=== PATIENT | female | born 1995 | race African-American/Black ===

== ENCOUNTER 2017-05-08 01:56 | Emergency (ER) | payer SELFPAY ==
[2017-05-08] MEDS ORDERED: SULFAMETHOXAZOLE/TRIMETHOPRIM 800MG/160MG D.S. TABLET PO ONE (02:17)
[2017-05-08] MEDS ORDERED: ALBUTEROL SO4 2.5/IPRATROPIUM 0.5 INH SOL 3 ML VIAL.NEB. NEB STA (02:17)
[2017-05-08] MEDS ORDERED: MECLIZINE HCL 25 MG TABLET (FP) PO STA (02:17)
--- NOTE | 2017-05-08 02:17 | PDOC ---
History of Present Illness - General Exam Limitations: No Limitations - History of Present Illness Initial Comments: 05/08/17 03:28 Patient is a 22 year old female with a significant past medical history of asthma who presents to the ED with complaints of sore throat that began 3 days ago. Patient reports sore throat began 3 days ago suddenly while at home. She reports recently she has been feeling a squeezing sensation on her throat that she says occurs every 10 minutes secondary to sore throat. She reports experiencing slight nasal congestion and cough secondary to sore throat. Patient reports she is a current smoker but states she has been unable to smoke because of her sore throat. Denies chest pain, SOB. Denies fever, chills. Denies nausea, vomiting. Denies contact with sick individuals, out of state travel. Denies any other symptoms. Allergies: No allergies Social history: Current smoker. No alcohol. No illicit drugs. Surgical history PMD: None <Shiraz Haywood - Last Filed: 05/08/17 03:28> - General History Source: Patient <Bola Lacey - Last Filed: 05/08/17 03:46> - General Chief Complaint: Sore Throat Stated Complaint: DIFFICULTY BREATHING Time Seen by Provider: 05/08/17 02:10 Past History <Shiraz Haywood - Last Filed: 05/08/17 03:28> - Past Medical History Asthma: Yes COPD: No - Immunization History Immunization Up to Date: Yes - Suicide/Smoking/Psychosocial Hx Smoking Status: Yes Smoking History: Never smoked Have you smoked in the past 12 months: No Number of Cigarettes Smoked Daily: 3 Cigars Per Day: 0 Information on smoking cessation initiated: No Hx Alcohol Use: No Drug/Substance Use Hx: No Substance Use Type: None <Bola Lacey - Last Filed: 05/08/17 03:46> - Past Medical History Allergies/Adverse Reactions: Allergies Allergy/AdvReac Type Severity Reaction Status Date / Time No Known Allergies Allergy Verified 04/26/16 10:31 Home Medications: Ambulatory Orders Albuterol Sulfate Inhaler - [Ventolin HFA Inhaler -] 2 inh IH Q6H #1 inh Ibuprofen 800 mg PO TID #30 tablet 05/08/17 Meclizine HCl 25 mg PO TID #30 tablet 05/08/17 Sulfamethoxazole/Trimethoprim [Bactrim *Ds*] 1 tab PO BID #14 tablet 05/08/17 Review of Systems - Review of Systems Able to Perform ROS?: Yes Comments:: 05/08/17 03:28 CONSTITUTIONAL: Absent: fever, no chills, no fatigue EYES: Absent: visual changes ENT: Absent: ear pain, no sore throat CARDIOVASCULAR: Absent: chest pain, no palpitations RESPIRATORY: Absent: cough, no SOB GI: Absent: abdominal pain, no nausea, no vomiting, no constipation, no diarrhea GENITOURINARY: Absent: dysuria, no frequency, no hematuria MUSCULOSKELETAL: Absent: back pain, no arthralgia, no myalgia SKIN: Absent: rash All Other Systems: Reviewed and Negative <Shiraz Haywood - Last Filed: 05/08/17 03:28> *Physical Exam - Vital Signs Last Vital Signs Temp Pulse Resp BP Pulse Ox 97.9 F 88 17 127/87 100 05/08/17 02:03 05/08/17 02:03 05/08/17 02:03 05/08/17 02:03 05/08/17 02:03 - Physical Exam Comments: 05/08/17 03:28 GENERAL: +Mild distress. Well-appearing, well-nourished. No apparent distress. HEENT: +Moderate nasal congestion. +Slightly muffled voice. Normocephalic, atraumatic. PERRL, EOM intact. CARDIOVASCULAR: Normal S1, S2. Regular rate and rhythm. PULMONARY: Equal breath sounds. No Retractions. Clear to auscultation bilaterally. ABDOMEN: Soft, non-distended, non-tender. GASTROINTESTINAL: +Holding secretions well. EXTREMITIES: Normal ROM in all four extremities. No gross deformities. SKIN: Warm, dry. No rash NEUROLOGICAL: No focal neurological deficits. <Shiraz Haywood - Last Filed: 05/08/17 03:28> - Vital Signs Last Vital Signs Temp Pulse Resp BP Pulse Ox 97.9 F 88 17 127/87 100 05/08/17 02:03 05/08/17 02:03 05/08/17 02:03 05/08/17 02:03 05/08/17 02:03 <Bola Lacey - Last Filed: 05/08/17 03:46> ED Treatment Course - Medications Given in the ED: ED Medications Discontinued Medications Generic Name Dose Route Start Last Admin Trade Name Robert PRN Reason Stop Dose Admin Meclizine HCl 25 mg 05/08/17 02:17 05/08/17 02:33 Antivert - PO 05/08/17 02:18 25 mg ONCE STA Administration Trimethoprim/Sulfamethoxazole 1 each 05/08/17 02:17 05/08/17 02:33 Bactrim Ds - PO 05/08/17 02:18 1 each ONCE ONE Administration <Shiraz Haywood - Last Filed: 05/08/17 03:28> Medical Decision Making - Medical Decision Making 05/08/17 03:45 Dr. Lacey: The scribe's documentation has been prepared under my direction and personally reviewed by me in its entirery. I confirm that the note above accurately reflects all work, treatment, procedures, and medical decision making performed by me. Pt feels better after treatment. Will discharge. Rx sent to pharmacy <Bola Lacey - Last Filed: 05/08/17 03:46> *DC/Admit/Observation/Transfer - Attestations Scribe Attestion: 05/08/17 03:28 Documentation prepared by hSiraz Haywood, acting as front office medical assistant for Bola Lacey MD/DO. <Shiraz Haywood - Last Filed: 05/08/17 03:28> - Discharge Dispostion Admit: No <Bola Lacey - Last Filed: 05/08/17 03:46> Diagnosis at time of Disposition: Nasal congestion, Bronchitis - Discharge Dispostion Disposition: HOME Condition at time of disposition: Stable - Prescriptions Prescriptions: Albuterol Sulfate Inhaler - [Ventolin HFA Inhaler -] 2 inh IH Q6H #1 inh Ibuprofen 800 mg PO TID #30 tablet Meclizine HCl 25 mg PO TID #30 tablet Sulfamethoxazole/Trimethoprim [Bactrim *Ds*] 1 tab PO BID #14 tablet - Patient Instructions Printed Discharge Instructions: DI for Acute Bronchitis, DI for Nasal Congestion - Post Discharge Activity Forms/Work/School Notes: Back to Work
[2017-05-08 02:22] VITALS: TEMP 97.9; BMI 28.1
[2017-05-08] MEDS ORDERED: IBUPROFEN 400 MG TABLET (FP) PO ONE ×2 (03:43→03:59)
[2017-05-08 04:04] VITALS: BP 121/74; PULSE 96
== END 2017-05-08 04:05 | disposition home or self-care (01) ==
LOC: JER 01:56
PROC: 3E0F7GC Introduction of Other Therapeutic Substance into Respiratory Tract, Via Natural or Artificial Opening (ICD-10-PCS; principal; 2017-05-08)
DX: J40 Bronchitis, not specified as acute or chronic (principal); J45.909 Unspecified asthma, uncomplicated; F17.210 Nicotine dependence, cigarettes, uncomplicated
CPT/HCPCS: 99281-25

== ENCOUNTER 2017-07-21 11:03 | Emergency (ER) | payer OTHER ==
[2017-07-21 11:25] VITALS: BP 113/71; PULSE 77; TEMP 97.9; BMI 25.8
--- NOTE | 2017-07-21 12:46 | PDOC ---
Suture Removal/Wound Check HPI - History of Present Illness Chief Complaint: Suture/Staple Removal(Here) Stated Complaint: STAPLE/SUTURE REMOVAL Time Seen by Provider: 07/21/17 12:17 History Source: Yes: Patient Exam Limitations: Yes: No Limitations Treated at: Other ED Date of Last ED visit: 07/13/17 - Previous ED Treatment Type of procedure performed on last visit: Yes: Laceration Repair Antibiotics Prescribed: No - Onset of Previous Treatment Date of Occurence: 07/13/17 Past History - Past Medical History Allergies/Adverse Reactions: Allergies Allergy/AdvReac Type Severity Reaction Status Date / Time No Known Allergies Allergy Verified 07/21/17 11:25 Home Medications: Ambulatory Orders NK [No Known Home Medication] 07/21/17 Asthma: Yes COPD: No - Immunization History Immunization Up to Date: Yes - Suicide/Smoking/Psychosocial Hx Smoking Status: Yes Smoking History: Current every day smoker Have you smoked in the past 12 months: Yes Number of Cigarettes Smoked Daily: 4 Cigars Per Day: 0 Information on smoking cessation initiated: No Hx Alcohol Use: Yes Drug/Substance Use Hx: No Substance Use Type: None Suture Removal/Wound Check PE - Physical Exam Laceration/Wound Check Symptoms: reports: None Pain Intensity: 0 Current Severity Level: None Location of Laceration/Wound: left: Face (eyebrow) *Review of Systems - Review of Systems Able to Perform ROS?: Yes All Other Systems: Reviewed and Negative Medical Decision Making - Medical Decision Making 07/21/17 12:22 A/P: 6-year-old female without significant past medical history of presents at 13 sutures removed from her left eyebrow. No erythema, swelling, discharge to suture line. Wound edges well approximated. Diagnosis: Suture removal I removed 12 sutures from patients left eyebrow. Discharge home *DC/Admit/Observation/Transfer Diagnosis at time of Disposition: Visit for suture removal - Discharge Dispostion Disposition: HOME Condition at time of disposition: Stable Admit: No - Referrals Referrals: Eladio Haynes [Primary Care Provider] - - Patient Instructions Additional Instructions: Return to emergency department for any concerns. - Post Discharge Activity
== END 2017-07-21 12:49 | disposition home or self-care (01) ==
LOC: JERFT 11:03
DX: Z48.02 Encounter for removal of sutures (principal)
CPT/HCPCS: 99281-25

== ENCOUNTER 2018-06-01 13:28 | Emergency (ER) | payer OTHER ==
[2018-06-01 14:01] VITALS: BMI 29.7
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
[2018-06-01 15:22] LABS: BASO % 1.1 % (0-2.0); EOS % 2.1 % (0-4.5); HEMATOCRIT 39.5 % (32.4-45.2); HEMOGLOBIN 12.5 GM/dL (10.7-15.3); LYMPH % 34.6 % (8-40); MCH 25.8 pg (25.7-33.7); MCHC 31.6 g/dl (32.0-36.0); MEAN CELL VOLUME 81.7 fl (80-96); MEAN PLT VOLUME 8.3 fl (7.5-11.1); MONO % 11.8 % (3.8-10.2); NEUT % 50.4 % (42.8-82.8); PLATELET COUNT 254 K/MM3 (134-434); RBC 4.84 M/mm3 (3.60-5.2); RDW 16.9 % (11.6-15.6); WHITE BLOOD COUNT 5.6 K/mm3 (4.0-10.0)
[2018-06-01 15:39] LABS: ALBUMIN 3.7 g/dl (3.4-5.0); ALK PHOS 65 U/L (45-117); ANION GAP 8 MMOL/L (8-16); BILIRUBIN,TOTAL 0.6 mg/dL (0.2-1); BLOOD UREA NITROGEN 6 mg/dL (7-18); CALCIUM 8.8 mg/dL (8.5-10.1); CHLORIDE 106 mmol/L (98-107); CO2 23 mmol/L (21-32); CREATININE 0.6 mg/dL (0.55-1.3); GLUCOSE,RANDOM 74 mg/dL (74-106); POTASSIUM 3.8 mmol/L (3.5-5.1); SGOT/AST 16 U/L (15-37); SGPT/ALT 13 U/L (13-61); SODIUM 136 mmol/L (136-145); TOT PROT 7.3 g/dl (6.4-8.2)
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
[2018-06-01 16:35] LABS: URINE APPEARANCE SLCLOUDY; URINE BILIRUBIN NEGATIVE (<2.0 mg/dL); URINE COLOR YELLOW; URINE GLUCOSE (UA) NEGATIVE (NEGATIVE); URINE KETONE 2+ (NEGATIVE); URINE LEUK ESTERASE 2+ (NEGATIVE); URINE NITRITE NEGATIVE (NEGATIVE); URINE PROTEIN NEGATIVE (NEGATIVE)
[2018-06-01 16:41] LABS: EPI CELLS MODERATE /HPF (FEW); URINE BACTERIA RARE /hpf (NONE SEEN); URINE MUCUS MANY
[2018-06-01] MEDS ORDERED: NITROFURANTOIN MACROCRYSTAL 50 MG CAPSULE (FP) PO SCH (17:00)
[2018-06-01] MEDS ORDERED: NITROFURANTOIN MACROCRYSTAL 50 MG CAPSULE (FP) ONE (17:08)
[2018-06-01 17:43] VITALS: BP 120/63; PULSE 64; TEMP 97.9
== END 2018-06-01 17:43 | disposition left against medical advice (07) ==
LOC: JER 13:28
DX: O26.891 Other specified pregnancy related conditions, first trimester (principal); S39.81XA Other specified injuries of abdomen, initial encounter; V48.7XXA Person on outside of car injured in noncollision transport accident in traffic accident, initial encounter; Y92.414 Local residential or business street as the place of occurrence of the external cause; Y93.89 Activity, other specified; Y99.8 Other external cause status; O23.31 Infections of other parts of urinary tract in pregnancy, first trimester; Z3A.01 Less than 8 weeks gestation of pregnancy
CPT/HCPCS: 36415; 76817-TC; 80053; 81003; 81015; 85025; 86850; 86900; 86901; 87086; 99283-25

== ENCOUNTER 2019-01-17 18:55 | Inpatient (IN) | payer OTHER ==
[2019-01-17] MEDS ORDERED: AMPICILLIN SODIUM 2 GM VIAL ONE (21:23)
[2019-01-17 21:43] LABS: EPI CELLS 12.5 /HPF (0-5/HPF); HYALINE CASTS 6 /lpf (0-8); URINE APPEARANCE CLOUDY; URINE BACTERIA 82.5 /hpf (NEGATIVE); URINE BILIRUBIN NEGATIVE (NEGATIVE); URINE COLOR RED; URINE GLUCOSE (UA) NEGATIVE (NEGATIVE); URINE KETONE NEGATIVE (NEGATIVE); URINE LEUK ESTERASE 1+ (NEGATIVE); URINE NITRITE NEGATIVE (NEGATIVE); URINE PROTEIN 1+ (NEGATIVE); URINE RBC 337 /hpf (0-4); URINE WBC 17 /hpf (0-5)
[2019-01-17] MEDS ORDERED: AMPICILLIN - 2 GM in SODIUM CHLORIDE 100 ML IVPB ONE (21:45)
[2019-01-17] MEDS ORDERED: BUTORPHANOL TARTRATE 1 MG/ML VIAL IVPB ONE (21:46)
[2019-01-17 21:49] LABS: COCAINE, UR NEGATIVE ng/ml (CUTOFF=300); METHADONE, UR NEGATIVE ng/ml (CUTOFF=300); OPIATES, URI NEGATIVE ng/ml (CUTOFF=300); PHENCYCLIDINE,URINE NEGATIVE ng/ml (CUTOFF=25); URINE AMPHETAMINES NEGATIVE ng/ml (CUTOFF=500); URINE BARBITURATES NEGATIVE ng/ml (CUTOFF=200); URINE BENZODIAZEPINES NEGATIVE ng/ml (CUTOFF=200)
--- NOTE | 2019-01-17 21:49 | HP ---
Past Medical History - Admission Chief Complaint: Uterine contractions, LOF History of Present Illness: 24yo @ 39.5wks BIBA again (2x in 24 hours) for LOF and uterine contractions. No VB. +FM Seen this morning for uterine contractions, 2cm, sent home and advised follow up with her OBGYN in [facility] [place] @ Clinic in [place]. 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: Alzheimer's, CVA, Dementia, Migraine, Multiple Sclerosis, Peripheral Neuropathy, Parkinson's, Seizure, Syncope, TIA, Vertigo, Other Cardiovascular: No: AFIB, Aneurysm, Aortic Insufficiency, Aortic Stenosis, CAD, CHF, Deep Vein Thrombosis, HTN, Hyperlipdemia, MN, Mitral Insufficiency, Mitral Stenosis, Murmur, Pulmonary Hypertension, Other Pulmonary: No: Asthma, Bronchitis, Cancer, COPD, O2 Dependent, Pneumonia, Previously Intubated, Pulmonary Embolus, Pulmonary Fibrosis, Sleep Apnea, Other Gastrointestinal: No: Ascites, Cancer, Constipation, Crohn's Disease, Diverticulitis, Diverticulosis, Esophageal Varices, Gastritis, GERD, GI Bleed, Hemorrhoids, Hiatal Hernia, Inflamatory Bowel Disease, Irritable Bowel Disease, Pancreatitis, Peptic Ulcer Disease, Ulcerative Colitis, Other Hepatobiliary: No: Cirrhosis, Cholelithiasis, Cholecystitis, Choledocholithiasis , Hepatitis A, Hepatitis B, Hepatitis C, Other Renal/: No: Renal Failure, Renal Inusuff, BPH, Cancer, Hematuria, Hemodialysis , Neurogenic Bladder, Renal Calculi, UTI, Other Reproductive: No: Ectopic , Endometriosis, Fibroids, PID, Polycystic Ovary Syndrome, Postmenopausal, Other ...: 4 ...Para: 0 ...Induced : 3 ...EDC by Christoph: 01/20/19 Heme/Onc: No: Anemia, B12 Deficiency, Bleeding Disorder, Cancer, Current Chemotherapy, Current Radiation Therapy, Hemochromatosis, Hypercoaguable State, Myeloproliferative Synd, Sickle Cell Disease, Sickle Cell Trait, Thrombocytopenia, Other Infectious Disease: No: AIDS, C-Diff, Herpes Zoster, HIV, MRSA, STD's, Tuberculosis, VREF, Other - Past Surgical History Hx Myomectomy: No Hx Transabdominal Cerclage: No - Smoking History Smoking history: Never smoked Have you smoked in the past 12 months: No Aproximately how many cigarettes per day: 4 - Alcohol/Substance Use Hx Alcohol Use: No - Social History Usual Living Arrangement: Yes: With Significant Other ADL: Independent History of Recent Travel: No Home Medications - Allergies Allergies/Adverse Reactions: Allergies Allergy/AdvReac Type Severity Reaction Status Date / Time No Known Allergies Allergy Verified 01/17/19 22:55 - Home Medications Home Medications: Ambulatory Orders Pnv No.95/Ferrous Fum/Folic AC [ Formula] 1 each PO DAILY 11/05/18 Physical Exam - Maternity Constitutional: Yes: Well Nourished, No Distress, Calm Eyes: Yes: WNL, Conjunctiva Clear, EOM Intact HENT: Yes: WNL, Atraumatic, Normocephalic Neck: Yes: WNL, Supple, Trachea Midline Cardiovascular: Yes: WNL, Regular Rate and Rhythm Breast(s): Yes: WNL - Abdominal Exam/OB Number of Fetuses: Single Presentation: Vertex Contractions: Yes Regularity: Irregular Intensity: Mild Monitor Mode: External Category: I Accelerations: Non-Uniform Decelerations: None - Vaginal Exam/OB Vaginal Bleediing: No Speculum Exam: No Dilatation (cm): 3 Effacement (%): 50 Amniotic Membrane Status: Ruptured Nitrazine Test: Positive Presentation: Vertex/Position Station: -3 - Physical Exam Edema: No Assessment/Plan 24yo @ 39.5wk here with PROM Admit to L&D Amp for GBS unknown Stadol/Epidural Cat 1 tracing Anticipate Gisselle Springer
[2019-01-17 21:50] LABS: BASO % 0.8 % (0-2.0); HEMATOCRIT 35.3 % (32.4-45.2); HEMOGLOBIN 11.6 GM/dL (10.7-15.3); LYMPH % 26.1 % (8-40); MCH 28.3 pg (25.7-33.7); MCHC 32.9 g/dl (32.0-36.0); MEAN PLT VOLUME 10.5 fl (7.5-11.1); MONO % 11.4 % (3.8-10.2); NEUT % 59.7 % (42.8-82.8); PLATELET COUNT 187 K/MM3 (134-434); RDW 14.8 % (11.6-15.6); WHITE BLOOD COUNT 6.5 K/mm3 (4.0-10.0)
[2019-01-17] MEDS ORDERED: ELECTROLYTE-148 SOLN 1,000 ML IV SCH (22:00)
[2019-01-17 22:03] LABS: INR 0.89 (0.83-1.09); PROTHROMBIN TIME (PATIENT) 10.5 SEC (9.7-13.0)
[2019-01-17 22:05] LABS: ACTIVATED PTT 32.5 SECONDS (25.2-36.5)
[2019-01-17 22:28] LABS: BLOOD UREA NITROGEN 6.1 mg/dL (7-18); CALCIUM 9.1 mg/dL (8.5-10.1); CREATININE 0.6 mg/dL (0.55-1.3); POTASSIUM 4.1 mmol/L (3.5-5.1)
[2019-01-17] MEDS ORDERED: BUTORPHANOL TARTRATE 1 MG/ML VIAL ONE ×2 (22:30)
[2019-01-17 23:10] VITALS: BMI 31.6
[2019-01-18] MEDS ORDERED: LIDOCAINE HCL 1% PRESERVATIVE FREE - 30ML VIAL ONE (00:29)
[2019-01-18] MEDS ORDERED: OXYTOCIN 20 UNITS in 0.9% NS 20 UNIT/1,000 ML INFUS.BAG IV ONE (00:30)
[2019-01-18] MEDS ORDERED: FENTANYL/BUPIVACAINE/NS/PF - PCEA - 50 ML DISP.SYRIN EP ONE (00:47)
[2019-01-18] MEDS ORDERED: AMPICILLIN - 1 GM in SODIUM CHLORIDE 100 ML IVPB SCH (01:50)
[2019-01-18] MEDS ORDERED: WITCH HAZEL 50% (TUCKS) 40 PAD/JAR PAD TP PRN (02:16)
[2019-01-18] MEDS ORDERED: BENZOCAINE 28 GM HEMORRHOIDAL OINTMENT TP PRN (02:16)
[2019-01-18] MEDS ORDERED: METHYLERGONOVINE MALEATE 0.2 MG/1 ML AMP IM PRN (02:16)
[2019-01-18] MEDS ORDERED: BENZOCAINE 20% 57 GM BOTTLE TP PRN (02:16)
[2019-01-18] MEDS ORDERED: BISACODYL 10 MG SUPP.RECT RC PRN (02:16)
[2019-01-18] MEDS ORDERED: OXYTOCIN 20 UNITS in 0.9% NS 20 UNIT/1,000 ML INFUS.BAG IV SCH (02:30)
[2019-01-18] MEDS ORDERED: IBUPROFEN 600 MG TABLET (FP) PO ONE (02:56)
[2019-01-18] MEDS ORDERED: ACETAMINOPHEN 325 MG TABLET (FP) ONE (02:56)
[2019-01-18] MEDS: PRENATAL VITAMINS W/ FOLIC ACID TABLET (FP) PO SCH (09:27)
[2019-01-18] MEDS: ACETAMINOPHEN 325 MG TABLET (FP) PO PRN (09:27)
[2019-01-18] MEDS: IBUPROFEN 600 MG TABLET (FP) PO PRN (09:28)
[2019-01-19] MEDS: ACETAMINOPHEN 325 MG TABLET (FP) PO PRN ×2 (07:20→20:27)
[2019-01-19] MEDS: IBUPROFEN 600 MG TABLET (FP) PO PRN ×2 (07:20→20:25)
[2019-01-19 07:47] LABS: BASO % 0.4 % (0-2.0); EOS % 1.7 % (0-4.5); HEMATOCRIT 30.6 % (32.4-45.2); LYMPH % 23.3 % (8-40); MCH 27.8 pg (25.7-33.7); MCHC 32.8 g/dl (32.0-36.0); MEAN CELL VOLUME 84.9 fl (80-96); MONO % 9.2 % (3.8-10.2); NEUT % 65.4 % (42.8-82.8); PLATELET COUNT 180 K/MM3 (134-434); RBC 3.61 M/mm3 (3.60-5.2); RDW 14.3 % (11.6-15.6); WHITE BLOOD COUNT 10.3 K/mm3 (4.0-10.0)
--- NOTE | 2019-01-19 08:35 | PN ---
Post Progress Note - Subjective Subjective: PPD # 1, ambulating, tolerating PO, lochia decreased, breast and bottle feeding Post Day: 1 Type of Delivery: Vital Signs: Vital Signs Temperature 99.1 F 01/18/19 20:22 Pulse Rate 84 01/18/19 20:22 Respiratory Rate 20 01/18/19 20:22 Blood Pressure 143/81 01/18/19 20:22 O2 Sat by Pulse Oximetry (%) Breast Exam: Yes: Other (deferred) Uterus: Yes: Fundus Firm Abdomen/GI: Yes: Abdomen soft Lochia, amount: Small Extremities: Yes: Calves non-tender Activity: Ambulating - Labs Labs: CBC WBC 10.3 K/mm3 (4.0-10.0) H 01/19/19 07:00 RBC 3.61 M/mm3 (3.60-5.2) 01/19/19 07:00 Hgb 10.0 GM/dL (10.7-15.3) L 01/19/19 07:00 Hct 30.6 % (32.4-45.2) L 01/19/19 07:00 MCV 84.9 fl (80-96) 01/19/19 07:00 MCH 27.8 pg (25.7-33.7) 01/19/19 07:00 MCHC 32.8 g/dl (32.0-36.0) 01/19/19 07:00 RDW 14.3 % (11.6-15.6) 01/19/19 07:00 Plt Count 180 K/MM3 (134-434) 01/19/19 07:00 MPV 10.0 fl (7.5-11.1) 01/19/19 07:00 Absolute Neuts (auto) 6.7 K/mm3 (1.5-8.0) 01/19/19 07:00 Neutrophils % 65.4 % (42.8-82.8) 01/19/19 07:00 Lymphocytes % 23.3 % (8-40) 01/19/19 07:00 Monocytes % 9.2 % (3.8-10.2) 01/19/19 07:00 Eosinophils % 1.7 % (0-4.5) 01/19/19 07:00 Basophils % 0.4 % (0-2.0) 01/19/19 07:00 Nucleated RBC % 0 % (0-0) 01/19/19 07:00 Assessment/Plan PPD # 1 in stable condition -Continue PP care -Anticipate D?C home on PPD # 2
[2019-01-19] MEDS: PRENATAL VITAMINS W/ FOLIC ACID TABLET (FP) PO SCH (11:14)
[2019-01-19] MEDS: guaiFENesin 200 MG/10 ML 10 ML UNIT-DOSE CUPS PO PRN (21:10)
[2019-01-19] MEDS ORDERED: SENNOSIDES/DOCUSATE COMBO (SENNA PLUS) TABLET (UD) PO PRN (22:00)
--- NOTE | 2019-01-20 02:29 | PN ---
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 The patient had a w/o complications. A 2nd degree perineal laceration was repaired w/o problems. The mother and baby doing well .
[2019-01-20] MEDS: guaiFENesin 200 MG/10 ML 10 ML UNIT-DOSE CUPS PO PRN (06:39)
--- NOTE | 2019-01-20 08:01 | PN ---
Post Progress Note - Subjective Subjective: no complains Post Day: 2 Type of Delivery: Vital Signs: Vital Signs Temperature 98.2 F 01/19/19 21:43 Pulse Rate 84 01/19/19 21:43 Respiratory Rate 20 01/19/19 21:43 Blood Pressure 142/68 01/19/19 21:43 O2 Sat by Pulse Oximetry (%) Breast Exam: Yes: Soft, Engorged (at some places engorged large breasts ), Other (breast & bottle feeding ) Uterus: Yes: Fundus Firm, Non-tender, Other (obese abdomen ) Lochia: Yes: Rubra Lochia, amount: Moderate Extremities: Yes: Calves non-tender Perineum: Yes: Laceration (healing ) Activity: Ambulating - Labs Labs: CBC WBC 10.3 K/mm3 (4.0-10.0) H 01/19/19 07:00 RBC 3.61 M/mm3 (3.60-5.2) 01/19/19 07:00 Hgb 10.0 GM/dL (10.7-15.3) L 01/19/19 07:00 Hct 30.6 % (32.4-45.2) L 01/19/19 07:00 MCV 84.9 fl (80-96) 01/19/19 07:00 MCH 27.8 pg (25.7-33.7) 01/19/19 07:00 MCHC 32.8 g/dl (32.0-36.0) 01/19/19 07:00 RDW 14.3 % (11.6-15.6) 01/19/19 07:00 Plt Count 180 K/MM3 (134-434) 01/19/19 07:00 MPV 10.0 fl (7.5-11.1) 01/19/19 07:00 Absolute Neuts (auto) 6.7 K/mm3 (1.5-8.0) 01/19/19 07:00 Neutrophils % 65.4 % (42.8-82.8) 01/19/19 07:00 Lymphocytes % 23.3 % (8-40) 01/19/19 07:00 Monocytes % 9.2 % (3.8-10.2) 01/19/19 07:00 Eosinophils % 1.7 % (0-4.5) 01/19/19 07:00 Basophils % 0.4 % (0-2.0) 01/19/19 07:00 Nucleated RBC % 0 % (0-0) 01/19/19 07:00 Problem List - Problems (1) Encounter for care after hospital delivery Code(s): Z39.2 - ENCOUNTER FOR ROUTINE FOLLOW-UP Assessment/Plan stable s/p ct po Vit & iron anemia counselled discharge today
[2019-01-20] MEDS: PRENATAL VITAMINS W/ FOLIC ACID TABLET (FP) PO SCH (09:35)
[2019-01-20] MEDS: IBUPROFEN 600 MG TABLET (FP) PO PRN (09:48)
[2019-01-20] MEDS: ACETAMINOPHEN 325 MG TABLET (FP) PO PRN (09:48)
[2019-01-20 10:25] VITALS: BP 137/87; PULSE 81; TEMP 98.6
== END 2019-01-20 11:20 | disposition home or self-care (01) | DRG 560 ==
LOC: JDEL 18:55 → JLDR 19:00 → JERBED 20:00 → UNDOADMIN 20:00 → J3W 01-18 03:54
PROVIDERS: ADMIT Obstetrics & Gynecology; ATTEND Obstetrics & Gynecology
PROC: 10E0XZZ Delivery of Products of Conception, External Approach (ICD-10-PCS; principal; 2019-01-17)
PROC: 0KQM0ZZ Repair Perineum Muscle, Open Approach (ICD-10-PCS; 2019-01-17)
DX: O42.02 Full-term premature rupture of membranes, onset of labor within 24 hours of rupture (principal); D64.9 Anemia, unspecified; O70.1 Second degree perineal laceration during delivery; O99.02 Anemia complicating childbirth; Z3A.39 39 weeks gestation of pregnancy; Z37.0 Single live birth
CPT/HCPCS: 36415; 36600; 59025; 59409; 80048; 80307; 81003; 82803; 85025; 85610; 85730; 86593; 86762; 86850; 86900; 86901; 87340; 87389

== ENCOUNTER 2022-03-18 20:37 | Emergency (ER) | payer OTHER ==
[2022-03-18 21:26] VITALS: BP 149/78; PULSE 82; RESP 18; TEMP 98.5; BMI 32.8
[2022-03-18] MEDS ORDERED: IBUPROFEN 600 MG TABLET (FP) PO ONE ×2 (21:38→21:43)
== END 2022-03-18 23:35 | disposition home or self-care (01) ==
LOC: JER 20:37 → JERFT 20:37
DX: M54.2 Cervicalgia (principal); V43.52XA Car driver injured in collision with other type car in traffic accident, initial encounter
CPT/HCPCS: 99283-25

== ENCOUNTER 2023-09-27 11:23 | Emergency (ER) | payer BC, OTHER ==
[2023-09-27 11:50] VITALS: BP 129/79; PULSE 79; RESP 18; TEMP 98.6; BMI 32.4
[2023-09-27] MEDS: DIPHTH,PERTUSS(ACELL),TET 0.5 ML DISP.SYRIN IM ONE (13:16)
[2023-09-27] MEDS ORDERED: DIPHTH,PERTUSS(ACELL),TET 0.5 ML DISP.SYRIN IM ONE (13:16)
== END 2023-09-27 13:42 | disposition home or self-care (01) ==
LOC: JER 11:23
PROC: 0YQMXZZ Repair Right Foot, External Approach (ICD-10-PCS; principal; 2023-09-27)
PROC: 3E0234Z Introduction of Serum, Toxoid and Vaccine into Muscle, Percutaneous Approach (ICD-10-PCS; 2023-09-27)
DX: O9A.211 Injury, poisoning and certain other consequences of external causes complicating pregnancy, first trimester (principal); S91.311A Laceration without foreign body, right foot, initial encounter; W22.8XXA Striking against or struck by other objects, initial encounter; Z3A.12 12 weeks gestation of pregnancy
CPT/HCPCS: 12002-25; 73610-TC-LT-FY; 73630-TC-LT; 90471; 90715; 99284-25

== ENCOUNTER 2023-11-18 16:55 | Emergency (ER) | payer SELFPAY ==
[2023-11-18 17:08] VITALS: RESP 20; TEMP 98.1; BMI 31.4
[2023-11-18] MEDS: SODIUM CHLORIDE 0.9% 500 ML INFUS.BAG IV ONE ×2 (17:59→19:06)
[2023-11-18 18:03] VITALS: BP 124/72; PULSE 90
[2023-11-18 18:17] LABS: BASO % 0.3 % (0-2.0); EOS % 2.1 % (0-4.5); HEMATOCRIT 35.7 % (32.4-45.2); HEMOGLOBIN 11.8 GM/dL (10.7-15.3); LYMPH % 24.2 % (8-40); MCHC 33.2 g/dl (32.0-36.0); MEAN CELL VOLUME 84.4 fl (80-96); MEAN PLT VOLUME 8.2 fl (7.5-11.1); MONO % 8.6 % (3.8-10.2); NEUT % 64.8 % (42.8-82.8); PLATELET COUNT 268 10^3/uL (134-434); RBC 4.22 M/mm3 (3.60-5.2); RDW 15.7 % (11.6-15.6)
[2023-11-18 18:21] LABS: EPI CELLS >36 /uL (0-25.1); HYALINE CASTS 5 /uL (0-3.1); URINE APPEARANCE CLEAR; URINE BACTERIA 695 /uL (0-1359); URINE BILIRUBIN NEGATIVE (NEGATIVE); URINE COLOR YELLOW; URINE GLUCOSE (UA) NEGATIVE (NEGATIVE); URINE KETONE TRACE (NEGATIVE); URINE LEUK ESTERASE 1+ (NEGATIVE); URINE NITRITE NEGATIVE (NEGATIVE); URINE PROTEIN TRACE (NEGATIVE); URINE RBC 4 /uL (0-23.9); URINE UROBILINOGEN 0.2 mg/dL (0.2-1.0); URINE WBC 45 /uL (0-25.8)
[2023-11-18] MEDS ORDERED: SODIUM CHLORIDE 0.9% 1000 ML INFUS.BAG IV ONE (18:32)
[2023-11-18 18:35] LABS: POTASSIUM 3.7 mmol/L (3.5-5.1)
[2023-11-18 18:38] LABS: ALBUMIN 2.8 g/dl (3.4-5.0); BLOOD UREA NITROGEN 5.4 mg/dL (7-18)
[2023-11-18 18:41] LABS: CREATININE 0.5 mg/dL (0.55-1.3)
[2023-11-18 18:43] LABS: BILIRUBIN,TOTAL 0.2 mg/dL (0.2-1); TOT PROT 6.6 g/dl (6.4-8.2)
[2023-11-18 22:36] LABS: URINE CRYSTALS MODERATE /hpf
== END 2023-11-18 19:53 | disposition left against medical advice (07) ==
LOC: JER 16:55
DX: O99.891 Other specified diseases and conditions complicating pregnancy (principal); R55 Syncope and collapse; R42 Dizziness and giddiness; O21.9 Vomiting of pregnancy, unspecified; Z3A.17 17 weeks gestation of pregnancy
CPT/HCPCS: 36415; 80053; 81003; 85025; 87086; 93005; 93010; 99284-25

== ENCOUNTER 2023-11-25 07:00 | Emergency (ER) | payer SELFPAY ==
[2023-11-25 07:11] VITALS: BP 113/58; PULSE 105; RESP 18; TEMP 98.3; BMI 31.4
[2023-11-25] MEDS ORDERED: ACETAMINOPHEN 325 MG TABLET (FP) ONE (08:50)
[2023-11-25] MEDS: ACETAMINOPHEN 500 MG TABLET (FP) PO ONE (08:52)
== END 2023-11-25 10:07 | disposition home or self-care (01) ==
LOC: JER 07:00 → JERFT 07:00
DX: O98.512 Other viral diseases complicating pregnancy, second trimester (principal); U07.1 COVID-19; O99.892 Other specified diseases and conditions complicating childbirth; R05.9 Cough, unspecified; R52 Pain, unspecified; Z3A.20 20 weeks gestation of pregnancy
CPT/HCPCS: 0241U-QW; 99283-25